=== PATIENT | male | born 1985 | race Two or more races ===

== ENCOUNTER 2025-07-28 23:31 | Emergency (ER) | payer OTHER ==
[~2025-07-28] VITALS: Ht 190.5 cm; Wt 81.6 kg
[2025-07-29 00:04] VITALS: BP 137/85; O2SAT 97
[2025-07-29] MEDS ORDERED: KETOROLAC TROMETHAMINE 10 MG TABLET PO STA (01:49)
[2025-07-29] MEDS ORDERED: KETOROLAC TROMETHAMINE 10 MG TABLET PO ONE (02:01)
[2025-07-29] MEDS ORDERED: CEPHALEXIN500 MG PO (03:41)
== END 2025-07-29 03:49 | disposition home or self-care (01) ==
LOC: ER 23:32
DX: S09.8XXA Other specified injuries of head, initial encounter (principal); Y93.89 Activity, other specified; Y92.89 Other specified places as the place of occurrence of the external cause; Y04.2XXA Assault by strike against or bumped into by another person, initial encounter; S01.121A Laceration with foreign body of right eyelid and periocular area, initial encounter